=== PATIENT | female | born 1960 | race African-American/Black ===

== ENCOUNTER 2020-11-08 13:37 | Outpatient (CLI) | payer OTHER | END 2020-11-08 13:38 | disposition home or self-care (01) | LOC: MADRAD 13:37 | PROVIDERS: ATTEND Family Medicine | DX: M25.561 Pain in right knee (principal) ==

== ENCOUNTER 2020-12-09 12:16 | Outpatient (CLI) | payer OTHER, SELFPAY ==
[2020-12-09 12:46] LABS: Hemoglobin 7.5 g/dL (12.0-16.0); Mean Corpuscular HGB CONC 30.1 g/dL (32.0-36.0); Mean Corpuscular Hemoglobin 30.2 pg (27.0-31.0); Mean Corpuscular Volume 100.2 fL (78.0-98.0); Mean Platelet Volume 6.7 fL (7.4-10.4); Platelet Count 164 thou/uL (130-400); RBC Distribution Width 17.9 % (11.5-14.5); Red Blood Cell (RBC) Count 2.43 mill/uL (4.20-5.40); White Blood Cell (WBC) Count 7.6 thou/uL (4.8-10.8)
[2020-12-09 13:40] LABS: Lymphocytes 44 % (21-51); MDiff Complete? YES; Manual Diff?? YES; Monocytes 8 % (0-10); Neutrophil 43 % (42-75)
[2020-12-09 13:41] LABS: Anisocytosis SLIGHT = 6-15 cells (100X) (0-5/hpf); Band 3 % (5-11); Eosinophils 2 % (0-10); Platelet Morphology Comment Appears Adequate
[2020-12-09 14:21] LABS: ALT (SGPT) 18 U/L (8-55); AST (SGOT) 20 U/L (5-34); Alkaline Phosphatase 105 U/L (40-110); Anion Gap 10 mmol/L (10-20); BUN (Urea Nitrogen) 17 mg/dL (9.8-20.1); Bilirubin, Total 0.6 mg/dL (0.2-1.2); Calc. Creatinine Clearance 0 mL/min (70-130); Calcium 9.4 mg/dL (7.8-10.44); Carbon Dioxide 23 mmol/L (22-29); Chloride 106 mmol/L (98-107); Globulin 7.9 g/dL (2.4-3.5); Glucose 112 mg/dL (70-105); Potassium 3.4 mmol/L (3.5-5.1); Protein, Total 10.9 g/dL (6.0-8.3); Sodium 136 mmol/L (136-145)
== END 2020-12-09 12:17 | disposition home or self-care (01) ==
LOC: MADLAB 12:16
PROVIDERS: ATTEND Family Medicine
DX: J20.9 Acute bronchitis, unspecified (principal); R06.00 Dyspnea, unspecified; I10 Essential (primary) hypertension; I51.7 Cardiomegaly; R09.89 Other specified symptoms and signs involving the circulatory and respiratory systems
CPT/HCPCS: 36415; 71046; 80053; 83880; 85025

== ENCOUNTER 2020-12-15 16:13 | Emergency (ER) | payer OTHER, SELFPAY ==
[~2020-12-15 16:13] MED LIST: Iopamidol 370 76% 125 ML VIAL FS ONE; Sodium Chloride 0.9% 100 ML BAG ONE
[2020-12-15 17:34] LABS: Base Excess-Venous 2.4 mmol/L (-2.0 to 3.0); CO2 Tension (PvCO2) 30.3 mmHg (42.0-51.0); Calcium, Ionized 1.21 mmol/L (1.15-1.33); Chloride 108 mmol/L (98-107); Hemoglobin - Calc 8.1 g/dL (12.0-16.0); Potassium 4.5 mmol/L (3.5-5.1); Sodium 142 mmol/L (138-145); vO2 Saturation-calc 95.8 % (60.0-85.0)
[2020-12-15 17:39] LABS: ALT (SGPT) 18 U/L (8-55); AST (SGOT) 28 U/L (5-34); Alkaline Phosphatase 123 U/L (40-110); Anion Gap 11 mmol/L (10-20); Anisocytosis SLIGHT = 6-15 cells (100X) (0-5/hpf); BUN (Urea Nitrogen) 12 mg/dL (9.8-20.1); Bilirubin, Total 0.6 mg/dL (0.2-1.2); Calc. Creatinine Clearance 0 mL/min (70-130); Calcium 9.6 mg/dL (7.8-10.44); Carbon Dioxide 23 mmol/L (22-29); Chloride 107 mmol/L (98-107); Eosinophils 5 % (0-10); Globulin 8.2 g/dL (2.4-3.5); Glucose 107 mg/dL (70-105); Hypochromia SLIGHT = 6-15 cells (100X) (0-5/hpf); Lipase 9 U/L (8-78); Lymphocytes 30 % (21-51); MDiff Complete? YES; Magnesium 1.7 mg/dL (1.6-2.6); Mean Corpuscular Hemoglobin 30.7 pg (27.0-31.0); Mean Corpuscular Volume 98.8 fL (78.0-98.0); Mean Platelet Volume 7.2 fL (7.4-10.4); Monocytes 9 % (0-10); Neutrophil 56 % (42-75); Platelet Count 165 thou/uL (130-400); Platelet Morphology Comment Appears Adequate; Potassium 3.5 mmol/L (3.5-5.1); Protein, Total 11.2 g/dL (6.0-8.3); RBC Distribution Width 19.2 % (11.5-14.5); Red Blood Cell (RBC) Count 2.29 mill/uL (4.20-5.40); Small Platelets SLIGHT; Sodium 137 mmol/L (136-145); White Blood Cell (WBC) Count 9.1 thou/uL (4.8-10.8)
[2020-12-15] MEDS ORDERED: Furosemide 40 MG/4 ML VIAL ONE (18:10)
[2020-12-15] MEDS ORDERED: cefTRIAXone\\ROCEPHIN 1 GM VIAL ONE (19:52)
[2020-12-15] MEDS ORDERED: Azithromycin 500 MG VIAL ONE (19:53)
[2020-12-15 20:37] LABS: SARS-CoV-2 NAA Rapid Test Not Detected (NotDetected)
== END 2020-12-15 22:12 | disposition short-term general hospital (02) ==
LOC: MADERS 16:13
DX: J18.9 Pneumonia, unspecified organism (principal); R06.03 Acute respiratory distress; D64.9 Anemia, unspecified; I11.0 Hypertensive heart disease with heart failure; I50.9 Heart failure, unspecified; F17.210 Nicotine dependence, cigarettes, uncomplicated; Z79.899 Other long term (current) drug therapy; Z20.822 Contact with and (suspected) exposure to COVID-19
CPT/HCPCS: 71045; 71275; 80053; 82330; 82435; 82803; 83605; 83690; 83735; 83880; 84132; 84295; 84484; 85025; 85379; 87040; 93005; 96365; 96375; J0456; J0696; J1940; J3490; J7050; Q9967; U0002

== ENCOUNTER 2021-05-21 08:31 | Emergency (ER) | payer OTHER | END 2021-05-21 09:15 | disposition home or self-care (01) | LOC: MADERS 08:31 | DX: G62.9 Polyneuropathy, unspecified (principal); C90.00 Multiple myeloma not having achieved remission; I11.0 Hypertensive heart disease with heart failure; I50.9 Heart failure, unspecified; F17.210 Nicotine dependence, cigarettes, uncomplicated; Z79.899 Other long term (current) drug therapy | CPT/HCPCS: 99283 ==

== ENCOUNTER 2021-10-07 23:50 | Emergency (ER) | payer OTHER ==
[2021-10-08 00:21] LABS: #Basophils 0.2 thou/uL (0.0-0.2); #Eosinphils 0.1 thou/uL (0.0-0.7); #Lymphocytes 4.4 thou/uL (1.20-3.40); #Monocytes 1.1 thou/uL (0.11-0.59); #Neutrophils 6.7 thou/uL (1.40-6.50); %Basophils 1.5 % (0.0-1.0); %Lymphocytes 35.4 % (21.0-51.0); %Monocytes 8.4 % (0.0-10.0); %Neutrophils 53.6 % (42.0-75.0); Hemoglobin 11.5 g/dL (12.0-16.0); Mean Corpuscular HGB CONC 30.7 g/dL (32.0-36.0); Mean Corpuscular Hemoglobin 29.9 pg (27.0-31.0); Mean Corpuscular Volume 97.4 fL (78.0-98.0); Mean Platelet Volume 9.8 fL (7.4-10.4); Platelet Count 218 thou/uL (130-400); RBC Distribution Width 17.1 % (11.5-14.5); Red Blood Cell (RBC) Count 3.84 mill/uL (4.20-5.40); White Blood Cell (WBC) Count 12.4 thou/uL (4.8-10.8)
[2021-10-08 01:38] LABS: ALT (SGPT) 23 U/L (8-55); AST (SGOT) 22 U/L (5-34); Albumin 4.2 g/dL (3.5-5.0); Alkaline Phosphatase 83 U/L (40-110); Anion Gap 14 mmol/L (10-20); BUN (Urea Nitrogen) 15 mg/dL (9.8-20.1); Bilirubin, Total 0.3 mg/dL (0.2-1.2); Calc. Creatinine Clearance 0 mL/min (70-130); Calcium 9.3 mg/dL (7.8-10.44); Carbon Dioxide 23 mmol/L (22-29); Chloride 111 mmol/L (98-107); Estimated GFR 99; Glucose 137 mg/dL (70-105); Magnesium 2.2 mg/dL (1.6-2.6); Potassium 3.8 mmol/L (3.5-5.1); Protein, Total 7.2 g/dL (6.0-8.3); Sodium 144 mmol/L (136-145)
== END 2021-10-08 03:25 | disposition home or self-care (01) ==
LOC: EDBD → MADERS 23:50
DX: J18.9 Pneumonia, unspecified organism (principal); R06.03 Acute respiratory distress; D84.9 Immunodeficiency, unspecified; C90.00 Multiple myeloma not having achieved remission; I11.0 Hypertensive heart disease with heart failure; I50.9 Heart failure, unspecified; F17.210 Nicotine dependence, cigarettes, uncomplicated; Z79.82 Long term (current) use of aspirin; Z79.899 Other long term (current) drug therapy; Z94.81 Bone marrow transplant status
CPT/HCPCS: 71275; 80053; 83735; 83880; 84484; 85025; 93005; Q9967

== ENCOUNTER 2021-10-09 20:35 | Emergency (ER) | payer OTHER ==
[2021-10-09 21:21] LABS: Band 1 % (5-11); Eosinophils 1 % (0-10); Hemoglobin 10.7 g/dL (12.0-16.0); Lymphocytes 44 % (21-51); MDiff Complete? YES; Mean Corpuscular HGB CONC 31.1 g/dL (32.0-36.0); Mean Corpuscular Hemoglobin 29.9 pg (27.0-31.0); Mean Corpuscular Volume 96.2 fL (78.0-98.0); Mean Platelet Volume 10.4 fL (7.4-10.4); Monocytes 1 % (0-10); Neutrophil 53 % (42-75); Platelet Count 215 thou/uL (130-400); Red Blood Cell (RBC) Count 3.58 mill/uL (4.20-5.40); White Blood Cell (WBC) Count 8.9 thou/uL (4.8-10.8)
[2021-10-09 21:30] LABS: ALT (SGPT) 21 U/L (8-55); Albumin 4.2 g/dL (3.5-5.0); Alkaline Phosphatase 71 U/L (40-110); Anion Gap 14 mmol/L (10-20); BUN (Urea Nitrogen) 19 mg/dL (9.8-20.1); Bilirubin, Total 0.3 mg/dL (0.2-1.2); Calc. Creatinine Clearance 0 mL/min (70-130); Calcium 9.7 mg/dL (7.8-10.44); Carbon Dioxide 24 mmol/L (22-29); Chloride 109 mmol/L (98-107); Estimated GFR 70; Globulin 3.4 g/dL (2.4-3.5); Glucose 123 mg/dL (70-105); Potassium 4.4 mmol/L (3.5-5.1); Protein, Total 7.6 g/dL (6.0-8.3); Sodium 143 mmol/L (136-145)
[2021-10-09 21:32] LABS: AST (SGOT) 24 U/L (5-34)
[2021-10-09] MEDS ORDERED: Lorazepam 2 MG/ML VIAL ONE (22:59)
== END 2021-10-09 23:30 | disposition home or self-care (01) ==
LOC: MADERS 20:35 → EDBD 20:35 → MADERS 23:30
DX: R06.02 Shortness of breath (principal); F41.9 Anxiety disorder, unspecified; I11.0 Hypertensive heart disease with heart failure; I50.9 Heart failure, unspecified; F17.210 Nicotine dependence, cigarettes, uncomplicated; Z79.82 Long term (current) use of aspirin; Z79.899 Other long term (current) drug therapy
CPT/HCPCS: 71045; 80053; 83880; 84484; 85025; 93005; 96374; J2060

== ENCOUNTER 2022-04-04 09:31 | Emergency (ER) | payer OTHER | END 2022-04-04 09:58 | disposition home or self-care (01) | LOC: MADERS 09:31 | DX: R73.9 Hyperglycemia, unspecified (principal); I11.0 Hypertensive heart disease with heart failure; I50.9 Heart failure, unspecified; F17.210 Nicotine dependence, cigarettes, uncomplicated; C90.00 Multiple myeloma not having achieved remission | CPT/HCPCS: 36416; 99284 ==

== ENCOUNTER 2022-04-23 00:12 | Emergency (ER) | payer OTHER ==
[~2022-04-23 00:12] MED LIST changes: +Fentanyl 100 MCG/2 ML VIAL ONE; -Iopamidol 370 76% 125 ML VIAL FS ONE; +Lidocaine 1% PF 5 ML VIAL ONE; +Midazolam HCl 2 mg/2 ml Vial ONE; +Sodium Bicarbonate 2.5 MEQ/5 ML VIAL ONE; -Sodium Chloride 0.9% 100 ML BAG ONE
[2022-04-23] MEDS ORDERED: Iopamidol 370 76% 100 ML VIAL ONE (00:16)
[2022-04-23 00:57] LABS: Phosphorus 3.4 mg/dL (2.3-4.7)
[2022-04-23 01:27] LABS: Base Excess-Venous -10.4 mmol/L (-2.0 to 3.0); Bicarbonate (HCO3v) 14.2 mmol/L (22.0-28.0); CO2 Tension (PvCO2) 27.2 mmHg (42.0-51.0); Calcium, Ionized 1.15 mmol/L (1.15-1.33); Chloride 103 mmol/L (98-107); Hemoglobin - Calc 10.8 g/dL (12.0-16.0); Potassium 4.4 mmol/L (3.5-5.1); Sodium 133 mmol/L (138-145); T. Carbon Dioxide 15.1 mmol/L (22.0-28.0); vO2 Saturation-calc 94.6 % (60.0-85.0)
[2022-04-23 01:28] LABS: Band 26 % (5-11); Lymphocytes 19 % (21-51); MDiff Complete? YES; Mean Corpuscular HGB CONC 32.3 g/dL (32.0-36.0); Mean Corpuscular Hemoglobin 30.6 pg (27.0-31.0); Mean Corpuscular Volume 94.8 fl (78.0-98.0); Mean Platelet Volume 9.3 fL (7.4-10.4); Monocytes 14 % (0-10); Neutrophil 41 % (42-75); Platelet Count 170 10x3/uL (130-400); RBC Distribution Width 15.1 % (11.5-14.5); RBC Morphology Normal; Red Blood Cell (RBC) Count 3.61 mill/uL (4.20-5.40); White Blood Cell (WBC) Count 6.6 10x3/uL (4.8-10.8)
[2022-04-23 01:53] LABS: Bilirubin Negative (Negative); Blood, Urine Negative (Negative); Clarity Clear (Clear); Glucose, Urine (Dipstick) 500 mg/dL (Negative); Ketone, Urine 80 mg/dL (Negative); Leukocyte Negative (Negative); Nitrite Negative (Negative); Protein, Urine (Dipstick) Negative (Neg-Trace); Urobilinogen 0.2 mg/dL (Less than 2); pH, Urine 5.5 (5.0-9.0)
[2022-04-23 02:11] LABS: ALT (SGPT) 20 U/L (8-55); AST (SGOT) 18 U/L (5-34); Albumin 3.5 g/dL (3.5-5.0); Alkaline Phosphatase 85 U/L (40-110); Anion Gap 20 mmol/L (10-20); BUN (Urea Nitrogen) 20 mg/dL (9.8-20.1); Bilirubin, Total 0.3 mg/dL (0.2-1.2); CK (CPK) 48 U/L (29-168); Calc. Creatinine Clearance 0 mL/min (70-130); Calcium 9.5 mg/dL (7.8-10.44); Carbon Dioxide 12 mmol/L (22-29); Chloride 102 mmol/L (98-107); Estimated GFR 46; Globulin 3.9 g/dL (2.4-3.5); Potassium 4.4 mmol/L (3.5-5.1); Protein, Total 7.4 g/dL (6.0-8.3); Sodium 130 mmol/L (136-145)
[2022-04-23 02:13] LABS: Glucose 773 mg/dL (70-105)
[2022-04-23] MEDS ORDERED: Lactated Ringer's 1,000 ML ONE (02:39)
[2022-04-23] MEDS ORDERED: Aspirin Chewable 81 MG TAB ONE (02:52)
[2022-04-23] MEDS ORDERED: INSULIN REGULAR IN 0.9 % NACL 100 UNIT/100 ML BAG ONE (03:19)
[2022-04-23] MEDS ORDERED: Amoxicillin/Potassium Clav 875 MG TAB ONE (04:06)
[2022-04-23] MEDS ORDERED: NS 0.9% w/ 20 MEQ KCL 1,000 ML ONE (04:07)
[2022-04-23 04:45] LABS: Magnesium 2.2 mg/dL (1.6-2.6)
== END 2022-04-23 04:30 | disposition short-term general hospital (02) ==
LOC: MADERS 00:12
DX: E11.10 Type 2 diabetes mellitus with ketoacidosis without coma (principal); N17.9 Acute kidney failure, unspecified; I51.7 Cardiomegaly; K04.7 Periapical abscess without sinus; K02.9 Dental caries, unspecified; R79.1 Abnormal coagulation profile; F17.210 Nicotine dependence, cigarettes, uncomplicated; Z79.82 Long term (current) use of aspirin; Z79.899 Other long term (current) drug therapy
CPT/HCPCS: 36416; 71045; 71275; 80053; 81003; 82010; 82330; 82550; 82803; 83605; 83735; 83880; 84100; 84484; 85025; 85379; 93005; 96360; 96361; 96365; J1815; J3480; J7120; Q9967

== ENCOUNTER 2022-05-21 13:40 | Emergency (ER) | payer OTHER ==
[2022-05-21] MEDS ORDERED: Lactated Ringer's 1,000 ML ONE (14:02)
[2022-05-21 14:57] LABS: Hemoglobin 9.4 g/dL (12.0-16.0); Mean Corpuscular HGB CONC 31.9 g/dL (32.0-36.0); Mean Corpuscular Hemoglobin 31.1 pg (27.0-31.0); Mean Corpuscular Volume 97.4 fl (78.0-98.0); Mean Platelet Volume 10.3 fL (7.4-10.4); Platelet Count 115 10x3/uL (130-400); Platelet Morphology Comment Appears Decreased; Red Blood Cell (RBC) Count 3.03 mill/uL (4.20-5.40); White Blood Cell (WBC) Count 5.8 10x3/uL (4.8-10.8)
[2022-05-21 14:58] LABS: ALT (SGPT) 16 U/L (8-55); AST (SGOT) 13 U/L (5-34); Albumin 3.6 g/dL (3.4-4.8); Alkaline Phosphatase 99 U/L (40-110); Anion Gap 16 mmol/L (10-20); BUN (Urea Nitrogen) 11 mg/dL (9.8-20.1); Base Excess-Venous -0.7 mmol/L (-2.0 to 3.0); Bicarbonate (HCO3v) 22.9 mmol/L (22.0-28.0); Bilirubin, Total 0.4 mg/dL (0.2-1.2); CO2 Tension (PvCO2) 33.2 mmHg (42.0-51.0); Calc. Creatinine Clearance 0 mL/min (70-130); Calcium 8.9 mg/dL (7.8-10.44); Carbon Dioxide 20 mmol/L (23-31); Chloride 103 mmol/L (98-107); Chloride 109 mmol/L (98-107); Estimated GFR 66; Globulin 3.7 g/dL (2.4-3.5); Hemoglobin - Calc 10.3 g/dL (12.0-16.0); Lipase 24 U/L (8-78); Magnesium 1.5 mg/dL (1.6-2.6); Phosphorus 2.1 mg/dL (2.3-4.7); Potassium 3.3 mmol/L (3.5-5.1); Potassium 4.6 mmol/L (3.5-5.1); Protein, Total 7.3 g/dL (5.8-8.1); Sodium 136 mmol/L (136-145); Sodium 139 mmol/L (138-145); vO2 Saturation-calc 99.8 % (60.0-85.0)
[2022-05-21 15:01] LABS: Manual Diff?? YES
[2022-05-21 15:02] LABS: Lymphocytes 30 % (21-51); MDiff Complete? YES; Monocytes 13 % (0-10); Neutrophil 57 % (42-75)
[2022-05-21 15:03] LABS: Anisocytosis SLIGHT = 6-15 cells (100X) (0-5/hpf); Polychromasia SLIGHT = 2-3 cells (100X) (0-2/hpf)
[2022-05-21 15:04] LABS: Glucose 479 mg/dL (80-115)
[2022-05-21] MEDS ORDERED: Insulin Regular 300 UNITS/3 ML VIAL ONE (15:14)
[2022-05-21] MEDS ORDERED: Magnesium 2 GM/50 ML BAG (IN WATER) ONE (15:14)
[2022-05-21] MEDS ORDERED: Potassium Chloride 20 MEQ TAB ONE (15:14)
[2022-05-21 15:18] LABS: Bilirubin Negative (Negative); Blood, Urine Negative (Negative); Clarity Clear (Clear); Glucose, Urine (Dipstick) >=1000 mg/dL (Negative); Ketone, Urine Trace mg/dL (Negative); Leukocyte Negative (Negative); Nitrite Negative (Negative); Protein, Urine (Dipstick) 30 mg/dL (Neg-Trace); Specific Gravity, Urine 1.015 (1.005-1.030); Urobilinogen 0.2 mg/dL (Less than 2); pH, Urine 5.5 (5.0-9.0)
[2022-05-21 15:26] LABS: Bacteria/HPF Rare-Few HPF (None Seen); RBC/HPF 0-3 HPF (0-3); Yeast-Budding Rare HPF (None Seen)
== END 2022-05-21 17:35 | disposition home or self-care (01) ==
LOC: MADERS 13:40
DX: E11.65 Type 2 diabetes mellitus with hyperglycemia (principal); Z87.891 Personal history of nicotine dependence; D64.9 Anemia, unspecified; R01.1 Cardiac murmur, unspecified; E87.6 Hypokalemia; E83.42 Hypomagnesemia; E83.39 Other disorders of phosphorus metabolism; I11.0 Hypertensive heart disease with heart failure; I50.9 Heart failure, unspecified; Z79.899 Other long term (current) drug therapy; Z79.84 Long term (current) use of oral hypoglycemic drugs
CPT/HCPCS: 36416; 71045; 80053; 81003; 81015; 82010; 82330; 82435; 82803; 83605; 83690; 83735; 84100; 84132; 84295; 85014; 85025; 93005; 94760; 96361; 96365; J1815; J3475; J7120

== ENCOUNTER 2022-07-07 22:11 | Emergency (ER) | payer OTHER ==
[2022-07-07 23:24] LABS: ALT (SGPT) 31 U/L (8-55); AST (SGOT) 43 U/L (5-34); Albumin 3.7 g/dL (3.4-4.8); Alkaline Phosphatase 87 U/L (40-110); Anion Gap 16 mmol/L (10-20); BUN (Urea Nitrogen) 13 mg/dL (9.8-20.1); Bilirubin, Total 0.3 mg/dL (0.2-1.2); CK (CPK) 65 U/L (29-168); Calc. Creatinine Clearance 0 mL/min (70-130); Carbon Dioxide 16 mmol/L (23-31); Chloride 118 mmol/L (98-107); Estimated GFR 92; Globulin 4.1 g/dL (2.4-3.5); Glucose 114 mg/dL (80-115); Magnesium 1.7 mg/dL (1.6-2.6); Potassium 3.6 mmol/L (3.5-5.1); Protein, Total 7.8 g/dL (5.8-8.1); Sodium 146 mmol/L (136-145)
[2022-07-07 23:34] LABS: #Basophils 0.2 thou/uL (0.0-0.2); #Lymphocytes 0.6 thou/uL (1.20-3.40); #Monocytes 1.1 thou/uL (0.11-0.59); #Neutrophils 12.6 thou/uL (1.40-6.50); %Basophils 1.2 % (0.0-1.0); %Eosinophils 0.1 % (0.0-10.0); %Lymphocytes 4.4 % (21.0-51.0); %Monocytes 7.4 % (0.0-10.0); Hemoglobin 8.6 g/dL (12.0-16.0); Mean Corpuscular HGB CONC 32.1 g/dL (32.0-36.0); Mean Corpuscular Volume 102.8 fl (78.0-98.0); Mean Platelet Volume 9.1 fL (7.4-10.4); Platelet Count 215 10x3/uL (130-400); RBC Distribution Width 18.3 % (11.5-14.5); White Blood Cell (WBC) Count 14.5 10x3/uL (4.8-10.8)
[2022-07-07 23:51] LABS: Base Excess-Venous -5.3 mmol/L (-2.0 to 3.0); Bicarbonate (HCO3v) 18.5 mmol/L (22.0-28.0); CO2 Tension (PvCO2) 29.2 mmHg (42.0-51.0); Calcium, Ionized 0.95 mmol/L (1.15-1.33); Chloride 118 mmol/L (98-107); Hemoglobin - Calc 10.2 g/dL (12.0-16.0); Potassium 4.3 mmol/L (3.5-5.1); Sodium 149 mmol/L (138-145); T. Carbon Dioxide 19.4 mmol/L (22.0-28.0); vO2 Saturation-calc 98.2 % (60.0-85.0)
[2022-07-08] MEDS ORDERED: Furosemide 40 MG/4 ML VIAL ONE (00:36)
== END 2022-07-08 01:21 | disposition home or self-care (01) ==
LOC: MADERS 22:11
DX: R06.02 Shortness of breath (principal); I11.0 Hypertensive heart disease with heart failure; I50.9 Heart failure, unspecified; E11.9 Type 2 diabetes mellitus without complications; Z87.891 Personal history of nicotine dependence; Z79.84 Long term (current) use of oral hypoglycemic drugs
CPT/HCPCS: 36415; 36416; 71045; 82330; 82550; 82803; 83735; 83880; 84484; 85025; 93005; 94760; 96374; J1940

== ENCOUNTER 2022-07-08 14:28 | Emergency (ER) | payer OTHER ==
[2022-07-08] MEDS ORDERED: Aspirin Chewable 81 MG TAB ONE (14:51)
[2022-07-08] MEDS ORDERED: Furosemide 40 MG/4 ML VIAL ONE (14:51)
[2022-07-08 15:45] LABS: Hemoglobin 8.1 g/dL (12.0-16.0); Mean Corpuscular HGB CONC 30.9 g/dL (32.0-36.0); Mean Corpuscular Hemoglobin 31.9 pg (27.0-31.0); Mean Corpuscular Volume 103.3 fl (78.0-98.0); Mean Platelet Volume 8.7 fL (7.4-10.4); Platelet Count 159 10x3/uL (130-400); RBC Distribution Width 18.1 % (11.5-14.5); Red Blood Cell (RBC) Count 2.55 mill/uL (4.20-5.40); White Blood Cell (WBC) Count 8.6 10x3/uL (4.8-10.8)
[2022-07-08 16:06] LABS: ALT (SGPT) 39 U/L (8-55); AST (SGOT) 43 U/L (5-34); Alkaline Phosphatase 102 U/L (40-110); Anion Gap 16 mmol/L (10-20); BUN (Urea Nitrogen) 16 mg/dL (9.8-20.1); Bilirubin, Total 0.4 mg/dL (0.2-1.2); Calc. Creatinine Clearance 0 mL/min (70-130); Calcium 8.6 mg/dL (7.8-10.44); Carbon Dioxide 17 mmol/L (23-31); Chloride 112 mmol/L (98-107); Estimated GFR 80; Globulin 4.6 g/dL (2.4-3.5); Glucose 209 mg/dL (80-115); Magnesium 1.8 mg/dL (1.6-2.6); Protein, Total 8.6 g/dL (5.8-8.1); Sodium 142 mmol/L (136-145)
[2022-07-08 16:10] LABS: Band 9 % (5-11); Lymphocytes 6 % (21-51); MDiff Complete? YES; Macrocytosis SLIGHT = 6-15 cells (100X) (0-5/hpf); Monocytes 10 % (0-10); Neutrophil 75 % (42-75); Nucleated RBC (Manual Ct) 1 % (0); Platelet Morphology Comment Appears Adequate
[2022-07-08] MEDS ORDERED: Potassium Chloride 20 MEQ TAB ONE (18:25)
[2022-07-08 18:54] LABS: Troponin I Less than 0.010 ng/mL (< 0.028)
== END 2022-07-08 18:45 | disposition short-term general hospital (02) ==
LOC: MADERS 14:28
DX: I11.0 Hypertensive heart disease with heart failure (principal); I50.9 Heart failure, unspecified; C90.00 Multiple myeloma not having achieved remission; K21.9 Gastro-esophageal reflux disease without esophagitis; E11.9 Type 2 diabetes mellitus without complications; Z87.891 Personal history of nicotine dependence; Z79.899 Other long term (current) drug therapy; Z79.84 Long term (current) use of oral hypoglycemic drugs
CPT/HCPCS: 71045; 80053; 83735; 83880; 84484; 85025; 93005; 96374; J1940